=== PATIENT | male | born 1970 | race African-American/Black ===

== ENCOUNTER 2023-04-02 02:05 | Emergency (ER) | payer OTHER ==
[~2023-04-02] VITALS: Ht 180.3 cm; Wt 104.3 kg
[2023-04-02] MEDS ORDERED: IBUPROFEN 400 MG TABLET ONE (02:39)
[2023-04-02] MEDS ORDERED: IBUPROFEN 400 MG TABLET PO ONE (03:00)
[2023-04-02 05:03] VITALS: BP 124/77; TEMP 98; O2SAT 99
== END 2023-04-02 05:03 | disposition home or self-care (01) ==
LOC: ER 02:07
DX: R07.81 Pleurodynia (principal); I10 Essential (primary) hypertension; Z60.2 Problems related to living alone; V89.2XXA Person injured in unspecified motor-vehicle accident, traffic, initial encounter; Y93.89 Activity, other specified; Y92.89 Other specified places as the place of occurrence of the external cause; Y99.8 Other external cause status
CPT/HCPCS: 71100-TC